=== PATIENT | male | born 1965 | race Two or more races ===

== ENCOUNTER 2016-12-15 07:51 | Observation (INO) | payer MEDICAID ==
[~2016-12-15] VITALS: Ht 172.7 cm; Wt 60.8 kg
[2016-12-15] MEDS ORDERED: SODIUM CHLORIDE 0.9% 1,000 ML IV ONE (11:06)
[2016-12-15 11:35] LABS: Basophils # (auto) 0 uL; Basophils % (auto) 0.3 % (0.0-2.0); Eosinophils # (auto) 0.2 uL; Eosinophils % (auto) 1.4 % (0.0-7.0); Hematocrit 42.7 % (41.0-53.0); Hemoglobin 14.2 g/dL (13.5-17.5); Lymphocytes % (auto) 15.2 % (10.0-50.0); Mean Corpuscular Hemoglobin 28.5 pg (28.0-32.0); Mean Corpuscular Hgb Conc. 33.3 g/dL (32.0-36.0); Mean Corpuscular Volume 85.7 fL (80.0-100.0); Mean Platelet Volume 6.2 fL (7.4-10.4); Monocytes % (auto) 7.4 % (0.0-12.0); Neutrophils % (auto) 75.7 % (37.0-80.0); Platelet Count (auto) 582 10^3/uL (140-450); Red Cell Distribution Width 12.6 % (11.6-16.0); White Blood Cell 13.2 10^3/uL (4.4-10.8)
[2016-12-15 11:57] LABS: Albumin 3.1 g/dL (3.4-5.0); BUN/Creatinine Ratio 10.3; Bilirubin, Total 0.5 mg/dL (0.2-1.0); Calcium 9.5 mg/dL (8.5-10.1); Magnesium 2.4 mg/dL (1.6-2.6); Total Protein 8.2 g/dL (6.4-8.2)
[2016-12-15 12:40] LABS: Urine Bilirubin Negative (Negative); Urine Blood Negative /uL (Negative); Urine Color Yellow (Yellow); Urine Nitrite Negative (Negative); Urine RBC <1 /hpf (0 - 3); Urine Urobilinogen Normal (Negative); Urine pH 6.5 (5.0-8.0)
[2016-12-15 12:55] LABS: Urine Glucose 3+ mg/dL (Normal); Urine Ketone 1+ (Negative)
[2016-12-15 13:37] VITALS: BP 118/80
[2016-12-15] MEDS ORDERED: cefTRIAXone 1GM/50ML D5W 50 ML IV ONE (15:00)
== END 2016-12-15 15:26 | disposition home or self-care (01) | DRG 115 ==
LOC: ER 07:51 → OVERFLOW 11:08 → ER 15:22
PROVIDERS: ADMIT Emergency Medicine; ATTEND Emergency Medicine
DX: R68.84 Jaw pain (principal); E44.1 Mild protein-calorie malnutrition; E11.9 Type 2 diabetes mellitus without complications; F17.210 Nicotine dependence, cigarettes, uncomplicated
CPT/HCPCS: 36415; 70486; 71020; 80053; 81001; 82962; 83735; 85025; 96361; 96365; 99285; G0378; J0696; J7030